=== PATIENT | male | born 1995 ===

== ENCOUNTER 2022-04-04 17:15 | Emergency (ER) | payer OTHER, SELFPAY ==
--- NOTE | ~2022-04-04 | XR_ITS ---
EXAMINATION: XR CHEST CLINICAL INFORMATION: Chest discomfort and shortness of breath COMPARISON: None TECHNIQUE: Frontal view of the chest was obtained. FINDINGS: No significant abnormality is noted involving the heart, lungs, mediastinum, bony thorax or soft tissues. XR/XR chest 1V IMPRESSION: Unremarkable examination.
[2022-04-04 18:27] VITALS: BP 131/52; PULSE 74; RESP 18; TEMP 36.6; O2SAT 98; BMI 28.4
[2022-04-04 18:46] LABS: COVID-19 Test Positive (Negative); IDNOW Serial# 16C4AD1C
[2022-04-04 18:55] LABS: Influenza A Negative (Negative); Influenza B2 Negative (Negative)
[2022-04-04] MEDS: Acetaminophen 325 MG TABLET 975 MG PO (20:34)
== END 2022-04-04 23:47 | disposition left against medical advice (07) ==
LOC: HO.ED 22:51
PROVIDERS: Emergency Provider Emergency Medicine; PCP Internal Medicine
DX: R52 Pain, unspecified (principal); R11.10 Vomiting, unspecified; Z20.822 Contact with and (suspected) exposure to COVID-19
CPT/HCPCS: 71045; 87502; 87635; 99281; 99283

== ENCOUNTER 2022-07-04 06:41 | Outpatient (REF) | payer OTHER, SELFPAY ==
[2022-07-04 11:33] LABS: MANUAL DIFF FLAG NO
[2022-07-04 11:49] LABS: Basophils Absolute Auto 0.1 X10*3/uL (0.0-0.2); Basophils Percent Auto 1.2 % (0-2); Eosinophils Absolute Auto 0.1 X10*3/uL (0.0-0.4); Eosinophils Percent Auto 1.9 % (0-4); Hematocrit 44.4 % (42.0-52.0); Hemoglobin 15.1 g/dl (14.0-18.0); Imm Gran Abs Auto 0.01 X10*3/uL (0.00-0.03); Imm Gran Pct Auto 0.2 % (0.0-0.4); Lymphocytes Absolute Auto 1.5 X10*3/uL (1.2-4.9); Lymphocytes Percent Auto 35.5 % (20-40); Mean Corpuscular Hemoglobin 30.9 pg (27.0-33.0); Mean Corpuscular Volume 90.8 fL (80.0-98.0); Mean Platelet Volume 10.1 fL (9.4-12.4); Monocytes Absolute Auto 0.3 X10*3/uL (0.1-1.2); Monocytes Percent Auto 6.8 % (2-11); Neutrophils Absolute Auto 2.3 x10*3/uL (2.0-8.3); Neutrophils Percent Auto 54.4 % (45-73); Platelet Count 275 X10*3/uL (160-400); Red Blood Count 4.89 X10*6/uL (4.60-5.80); Red Cell Distribution Width 11.8 % (11.0-16.0); White Blood Count 4.3 X10*3/uL (4.8-10.8)
[2022-07-04 12:17] LABS: Alanine Aminotransferase 31 U/L (0-40); Albumin Level 4.7 g/dL (3.5-5.0); Alkaline Phosphatase 62 U/L (39-117); Anion Gap 15 (12-20); Aspartate Amino Transferase 23 U/L (5-37); Bilirubin Total 2.7 mg/dL (0.0-1.0); Blood Urea Nitrogen 22 mg/dL (9-16); Calcium 9.5 mg/dL (8.4-10.2); Carbon Dioxide 24 mmol/L (22-29); Chloride 105 mmol/L (96-108); Cholesterol 142 mg/dL; Estimated Glomerular Filt Rate > 60; Glucose Fasting 93 mg/dL (60-99); HDL Cholesterol 45 mg/dL; LDL Cholesterol Calculated 70 mg/dl; Potassium 4.3 mmol/L (3.3-5.1); Sodium 140 mmol/L (135-145); Total Protein 7.3 g/dL (6.5-8.0); Triglycerides 138 mg/dL
[2022-07-04 12:31] LABS: TSH reflex Free T4 1.12 uIU/mL (0.32-4.0)
[2022-07-06 23:48] LABS: Follicle Stimulating Hormone 7.8 mIU/mL (1.6-8.0); Lutenizing Hormone 2.2 mIU/mL (1.5-9.3); Prolactin 14.8 ng/mL (2.0-18.0)
[2022-07-10 17:56] LABS: Testosterone, Free 84.7 pg/mL (35.0-155.0); Testosterone, Total 484 ng/dL (250-1100)
== END 2022-07-04 06:42 | disposition home or self-care (01) ==
LOC: HO.HMGCLDS 06:41
PROVIDERS: PCP Internal Medicine; Visit Provider Internal Medicine
DX: Z00.01 Encounter for general adult medical examination with abnormal findings (principal); R86.8 Other abnormal findings in specimens from male genital organs; N62 Hypertrophy of breast
CPT/HCPCS: 36415; 80053; 80061; 83001; 83002; 84146; 84402; 84403; 84443; 85025

== ENCOUNTER 2022-07-15 13:06 | Outpatient (REF) | payer OTHER, SELFPAY ==
[2022-07-15 14:40] LABS: Bilirubin Direct 0.7 mg/dL (0.0-0.5); Gamma Glutamyl Transpeptidase 24 U/L (11-51)
[2022-07-15 15:02] LABS: Ferritin 554 ng/mL (20-250)
[2022-07-16 08:44] LABS: HBsAGNum1 0.22 S/CO (0.00-0.99); HIV AB/AG Nonreactive (Nonreactive); Hepatitis B Core Antibody Nonreactive (Nonreactive); Hepatitis B Surface Antigen Negative (Negative); ~Hepatitis B Surface Antibody REACTIVE (Nonreactive); ~Hepatitis C Antibody Nonreactive (Nonreactive)
[2022-07-16 09:15] LABS: HBS Num1 233.04 mIU/mL (0-7.99); HBc Num1 0.06 S/CO (0.00-0.79); HIV Num 1 0.05 S/CO (0.00-0.99)
[2022-07-17 07:27] LABS: ~Hepatitis A Antibody IgM Nonreactive (Nonreactive)
== END 2022-07-15 13:07 | disposition home or self-care (01) ==
LOC: HO.LAB 13:06
PROVIDERS: Visit Provider Physician Assistant
DX: R17 Unspecified jaundice (principal); R10.819 Abdominal tenderness, unspecified site; R79.89 Other specified abnormal findings of blood chemistry; D64.9 Anemia, unspecified
CPT/HCPCS: 36415; 82248; 82728; 82977; 86704; 86706; 86709; 86803; 87340; 87389; 99202

== ENCOUNTER 2022-07-19 09:29 | Outpatient (REF) | payer OTHER, SELFPAY | END 2022-07-19 09:30 | disposition home or self-care (01) | LOC: HO.CT 09:29 | PROVIDERS: Visit Provider Nurse Practitioner Family | DX: Z13.89 Encounter for screening for other disorder (principal) ==

== ENCOUNTER 2023-07-19 09:29 | Emergency (ER) | payer OTHER, SELFPAY ==
[2023-07-19 09:30] VITALS: BP 138/78; PULSE 71; RESP 18; TEMP 37.6; O2SAT 100; BMI 32.3
--- NOTE | 2023-07-19 10:10 | ED.ANIMALBIT ---
HPI - Animal Bite General Chief Complaint: Animal Bite Stated Complaint: attacked by dog Time Seen by Provider: 07/19/23 10:07 Source: patient Mode of arrival: ambulatory Limitations: no limitations History of Present Illness HPI narrative: Patient is a 28-year-old male presenting the emergency department with complaint of right arm abrasion, is unsure if he was bit or scratched by dogs. 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 Reports he is unsure as the event happened so quickly. Patient states that the automobile mechanic radiator was unable to provide any information on the dog's vaccination status. Patient states he would prefer to err on the side of caution and receive all prophylactic medications. He denies any other areas of injury or trauma. He is unsure of his last tetanus vaccine. complaint: animal-related injury Onset (ago): hour(s) Animal: dog Description of animal: household pet Mechanism: other (unsure if bite/scratch) Location - Extremities: right: arm (distal right upper arm) Severity scale (1-10): 2 Context: other (delivering a package for [employer]) Associated symptoms: none Related Data Home Medications Medication Instructions Recorded Confirmed fexofenadine 60 mg tablet (Mela 60 mg PO BID 06/05/21 12/13/21 Allergy) Previous Rx's Medication Instructions Recorded amoxicillin 875 mg-potassium 1 tab PO BID #14 tabs 07/19/23 clavulanate 125 mg tablet Allergies Allergy/AdvReac Type Severity Reaction Status Date / Time latex AdvReac rash Uncoded 06/06/22 13:15 Review of Systems Review of Systems: As per HPI Yes all other systems are reviewed and are negative Constitutional: Constitutional: Reports as per HPI [facility] Past Medical History Medical History CRPS (complex regional pain syndrome), upper limb Depression Environmental and seasonal allergies Gynecomastia, male History of COVID-19 Low sperm motility Surgical History History of appendectomy Social History Social History (Updated 07/15/22 @ 12:47 by Dolores Mendez PA-C) Household Members Other:: Housing: House Alcohol intake: never Patient Tobacco Use Status: Never used Tobacco e-Cigarette/Vaping Use: Never Used Second Hand Smoke Exposure: No Advance Directives: No Advance Directives Information Provided: Yes service: No Current occupational status: employed Cognitive needs: No Hearing needs: No Vision needs: Yes Physical Exam ED Vital Signs: Vital Signs - 24 hr 07/19/23 09:30 07/19/23 10:13 Temperature 99.6 F 98.4 F Pulse Rate 71 83 Respiratory Rate 18 18 Blood Pressure 138/78 131/83 Pulse Oximetry 100 98 Oxygen Delivery Method Room Air Room Air BMI result Body Mass Index 32.3 Vital signs have been reviewed and appear to be correct. Blood pressure normal. Heart rate normal. Respiratory rate normal. Temperature normal. Oxygen saturation normal. Const General: cooperative, healthy appearing and no acute distress Orientation/consciousness: oriented to person, oriented to place, oriented to time and patient oriented x3 Limitations: no limitations HENMT Head: Yes normocephalic and Yes atraumatic Ears: external ears normal General nose exam: Normal external nose present Face and sinus: Yes face symmetric Mouth: oropharynx normal and moist mucous membranes Throat: Yes uvula midline Eyes Pupils: Equal, round and reactive pupils present Neck Neck: Yes normal visual inspection and Yes supple Resp Effort & Inspection: normal respiratory effort and able to speak in complete sentences Auscultation: clear to auscultation bilaterally Cardio Rate: regular rate Rhythm: regular rhythm Heart sounds: S1 normal heart sound present and S2 normal heart sound present GI Palpation (GI): Soft to palpation and nontender Auscultation: normoactive bowel sounds General: Yes no CVA tenderness Back/Spine/Pelvis Back: no CVA tenderness Skin General skin exam: elasticity normal and turgor normal Trauma: abrasion (4 superficial linear abrasions to distal rt upper arm w/ scant dried blood) Neuro General: oriented to person, oriented to place, oriented to time, patient oriented x3, gait normal, tone normal, moves all extremities, Normal light touch and pain sensation, no focal motor deficits, CN's II-XI intact bilaterally, normal sensation to monofilament and deep tendon reflexes 2+ bilaterally Cranial nerves: Yes Equal, round and reactive pupils present Cognition (Neuro): normal cognition Extrem General: Yes full ROM, Yes normal exam except as noted, Yes no pedal edema and Yes no calf tenderness Right upper extremity: shoulder/upper arm Details: normal ROM and abrasion upper arm distal posterior Details: multiple (4 superficial linear abrasions w/ scant dried blood) Psych Mental Status: mental status grossly normal Affect: normal affect Thought process: Normal thought process present Medical Decision Making Medical Decision Making [facility] Narrative: Patient is a 28-year-old male presenting the emergency department with complaint of right arm abrasion, is unsure if he was bit or scratched by dogs. On exam patient is awake, A+Ox3, VS WNL, afebrile, normal neurological exam without focal deficits, 4 superficial linear abrasions to posterior distal aspect of right upper arm with scant amount of dried blood, no obvious puncture wounds, no surrounding erythema or calor, no drainage or discharge, neurovascularly intact distally. Given reported symptoms and physical exam findings, initial differential includes dog bite, dog scratch, cellulitis. Will update tetanus, administer rabies vaccine and immunoglobulin, cleanse wounds, and prescribe Augmentin. Patient to receive follow up rabies vaccinations at short stay. Plan discussed with patient and patient agreeable. Return precautions discussed at bedside. Instructed patient to follow up with primary care provider to notify them of event. Differential Diagnosis Differential Diagnoses: The differential diagnosis associated with the presentation includes as per MDM. External Record Review External record reviewed: Inpatient record, Office record and Outpatient record Prescription Management I considered prescription management with: Antibiotic (Augmentin) Discharge Plan Discharge Clinical Impression: Dog bite of arm Qualifiers: Encounter type: initial encounter Laterality: right Qualified Code(s): S41.151A - Open bite of right upper arm, initial encounter Patient Disposition: Home, Self-Care Instructions: Animal Bite (ED), Rabies (ED) Additional Instructions: You were evaluated in the emergency department today for a dog bite/scratch to your right arm. Please keep the area surrounding the wound clean and dry and assess the wound daily for any signs of infection including worsening redness, swelling, thick yellow drainage, redness streaking up arm, or fever 100.4? F or greater. Follow-up with your primary care provider or return to the emergency department if any of these signs occur. You are being prescribed antibiotics to prevent infection, please take the full course of antibiotics as prescribed. Please follow-up with your primary care provider to notify them of this injury. You will receive the remaining doses of the rabies vaccine at the medical day stay, your orders have already been sent there. Please bring your vaccination record card each time. If for any reason you are unable to receive those vaccinations at the day stay, you can also return to the emergency department. Prescriptions: New amoxicillin-pot clavulanate 875-125 mg tablet 1 tab PO BID Qty: 14 0RF No Action fexofenadine [Mela Allergy] 60 mg tablet 60 mg PO BID
[2023-07-19 10:13] VITALS: BP 131/83; PULSE 83; RESP 18; TEMP 36.9; O2SAT 98
--- NOTE | 2023-07-19 10:14 | PC.NURSE ---
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 Patient with 4 abrasions to back side of right arm. No redness or bleeding noted.
[2023-07-19] MEDS: Diphth,Pertus(ACell),Tet Adult 0.5 ML SYRINGE IM (10:34)
[2023-07-19] MEDS: Rabies Vaccine, Human Diploid (Imovax) 1 ML VIAL IM (10:36)
[2023-07-19] MEDS: Rabies Immune Globulin/PF 900 UNIT/3 ML VIAL 1926 UNIT IM (10:40)
--- NOTE | 2023-07-19 10:56 | PC.NURSE ---
Medicated per mar, follow up instructions given to patient regarding follow up vaccines. Wound cleansed and covered. Patient verbalized understanding of discharge orders.
--- NOTE | 2023-07-19 11:39 | PC.NURSE ---
Domestic Animal Bite Report sent to [facility]
== END 2023-07-19 11:39 | disposition home or self-care (01) ==
PROVIDERS: Emergency Provider Student in an Organized Health Care Education/Training Program; PCP Internal Medicine
DX: S41.151A Open bite of right upper arm, initial encounter (principal); W54.0XXA Bitten by dog, initial encounter; Y93.89 Activity, other specified; Y92.480 Sidewalk as the place of occurrence of the external cause; Y99.0 Civilian activity done for income or pay; Z20.3 Contact with and (suspected) exposure to rabies
CPT/HCPCS: 90375; 90471; 90675; 90715; 96372; 99284

== ENCOUNTER 2023-07-22 13:13 | Outpatient (REF) | payer OTHER, SELFPAY | END 2023-07-22 13:14 | disposition home or self-care (01) | LOC: HO.MDS 13:13 | PROVIDERS: Visit Provider Registered Nurse Emergency | DX: Z20.3 Contact with and (suspected) exposure to rabies (principal); S51.051D Open bite, right elbow, subsequent encounter; W54.0XXD Bitten by dog, subsequent encounter | CPT/HCPCS: 90471; 90675 ==

== ENCOUNTER 2023-07-29 10:26 | Outpatient (REF) | payer OTHER, SELFPAY | END 2023-07-29 10:27 | disposition home or self-care (01) | LOC: HO.MDS 10:26 | PROVIDERS: Visit Provider Registered Nurse Emergency | DX: Z20.3 Contact with and (suspected) exposure to rabies (principal); S41.151D Open bite of right upper arm, subsequent encounter; W54.0XXD Bitten by dog, subsequent encounter | CPT/HCPCS: 90471; 90675 ==

== ENCOUNTER 2023-08-05 09:20 | Outpatient (REF) | payer OTHER, SELFPAY | END 2023-08-05 09:21 | disposition home or self-care (01) | LOC: HO.MDS 09:20 | PROVIDERS: PCP Internal Medicine; Visit Provider Registered Nurse Emergency | DX: Z20.3 Contact with and (suspected) exposure to rabies (principal); T14.8XXD Other injury of unspecified body region, subsequent encounter; W54.0XXD Bitten by dog, subsequent encounter | CPT/HCPCS: 90471; 90675 ==

== ENCOUNTER 2023-12-12 09:24 | Outpatient (REF) | payer MEDICAID, OTHER, SELFPAY ==
[2023-12-12 12:25] LABS: Alanine Aminotransferase 39 U/L (0-40); Albumin Level 4.8 g/dL (3.5-5.0); Alkaline Phosphatase 89 U/L (39-117); Anion Gap 13 (12-20); Aspartate Amino Transferase 29 U/L (5-37); Bilirubin Total 2.7 mg/dL (0.0-1.0); Blood Urea Nitrogen 18 mg/dL (9-16); Calcium 9.8 mg/dL (8.4-10.2); Carbon Dioxide 25 mmol/L (22-29); Chloride 107 mmol/L (96-108); Cholesterol 194 mg/dL (<200); Estimated Glomerular Filt Rate > 60; Glucose Fasting 93 mg/dL (60-99); HDL Cholesterol 54 mg/dL (>40); LDL Cholesterol Calculated 120 mg/dL (<100); Potassium 3.7 mmol/L (3.3-5.1); Sodium 141 mmol/L (135-145); Total Protein 7.8 g/dL (6.5-8.0); Triglycerides 102 mg/dL (<150)
== END 2023-12-12 09:25 | disposition home or self-care (01) ==
LOC: HO.HMGCLDS 09:24
PROVIDERS: PCP Internal Medicine; Visit Provider Internal Medicine
DX: Z00.01 Encounter for general adult medical examination with abnormal findings (principal); R17 Unspecified jaundice
CPT/HCPCS: 36415; 80053; 80061

== ENCOUNTER 2023-12-12 09:38 | Outpatient (AMB) | payer SELFPAY ==
[2023-12-12 10:25] VITALS: BP 136/88; PULSE 62; O2SAT 98; BMI 28.8
--- NOTE | 2023-12-12 10:25 | MHC.OFFWIV ---
Intake Vital Signs 12/12/23 10:25 Height 5 ft 8 in Weight 189 lb 2 oz BMI 28.8 BP 136/88 Blood Pressure Location Lt brachial Position Sitting Pulse 62 Pulse Source Pulse Oximeter Pulse Oximetry (%) 98 Oxygen Delivery Method Room Air Intake Visit Reasons: EP, rash in left lower arm ([phone]) Intake Note: Pt is here today for rash on lower Lt arm Patient Tobacco Use Status: Never used Tobacco Allergies latex Adverse Reaction (Uncoded 06/06/22 13:15) rash Medication List - Last Reconciled 12/12/23 by Emili Nieto, PATRICIA fexofenadine (Mela Allergy) 60 mg PO BID triamcinolone acetonide 0.1% 1 appl topical BID Do you need a note to return to daycare/school/sports/work: No HPI HPI Comments History of Present Illness Details 28 y/o male patient who presents to walk in clinic with c/o small rash on dorsal fore-arm. Reports that it started as a small area, that resembled Glue and now redness is spreading. Denies pain or itching. Denies any h/o skin infections. Reports that rash appeared 3 days ago. [facility] Medical History CRPS (complex regional pain syndrome), upper limb Depression Environmental and seasonal allergies Gynecomastia, male History of COVID-19 Low sperm motility Surgical History History of appendectomy Social History (Updated 07/15/22 @ 12:47 by Dolores Mendez PA-C) Household Members Other:: Housing: House Alcohol intake: never Patient Tobacco Use Status: Never used Tobacco e-Cigarette/Vaping Use: Never Used Second Hand Smoke Exposure: No service: No Current occupational status: employed Cognitive needs: No Hearing needs: No Vision needs: Yes Review of Systems Const All systems reviewed & are unremarkable except as noted in HPI and below Physical Exam Vital Signs: Last Vital Signs Pulse 62 12/12/23 10:25 BP 136/88 12/12/23 10:25 Pulse Ox 98 12/12/23 10:25 Oxygen Delivery Method Room Air 12/12/23 10:25 BMI result Body Mass Index 28.8 Skin General skin exam: dry skin, erythema, no jaundice, no petechiae and no purpura Lesions: lesion noted (Left dorsal forearm, crusting and red, indurated) Assessment & Plan Assessment & Plan (1) Skin rash: Code(s): R21 - Rash and other nonspecific skin eruption Plan: - Not clear what kind of lesion - Advised to monitor the area and RTC if getting worse. Medications: New triamcinolone acetonide 0.1% 1 appl topical BID 15 grams 0RF R21 - Rash and other nonspecific skin eruption Coding Level of Care Code Est Pt Level 2 (14395) Diagnoses Skin rash R21 Time Spent (min) 10
== END 2023-12-12 11:16 | disposition home or self-care (01) ==
PROVIDERS: PCP Internal Medicine; Visit Provider Nurse Practitioner Family
DX: R21 Rash and other nonspecific skin eruption (principal)
CPT/HCPCS: 99212

== ENCOUNTER 2024-01-22 08:14 | Outpatient (AMB) | payer OTHER, SELFPAY ==
[2024-01-22 08:51] VITALS: BP 118/72; PULSE 76; TEMP 36.6; O2SAT 97; BMI 28.7
--- NOTE | 2024-01-22 08:51 | MHC.OFFWIV ---
Intake Vital Signs 01/22/24 08:51 Height 5 ft 8 in Weight 189 lb BMI 28.7 BP 118/72 Blood Pressure Location Lt brachial Position Sitting Pulse 76 Pulse Source Pulse Oximeter Temp 97.9 F Temp Source Oral Pulse Oximetry (%) 97 Intake Visit Reasons: EP LT Arm rash Intake Note: pt is here for left arm rash, was seen in walk in last month and was given a cream that pt states has not gotten better and feels like rash is spreading Patient Tobacco Use Status: Never used Tobacco Allergies latex Adverse Reaction (Uncoded 01/22/24 08:52) rash Do you need a note to return to daycare/school/sports/work: No HPI EP LT Arm rash HPI Details This is a 28-year-old male patient who presents today with an ongoing rash on his left arm. He was seen at the walk-in clinic for this on 12/12 and prescribed triamcinolone 0.1% cream to apply to this. He states rash has gotten bigger, and now he he has similar, smaller areas on right lower leg. States they are sometimes itchy. also has similar areas of rash. [facility] Medical History Gynecomastia, male CRPS (complex regional pain syndrome), upper limb History of COVID-19 Low sperm motility Depression Environmental and seasonal allergies Surgical History History of appendectomy Social History Household Members Other:: Housing: House Alcohol intake: never Patient Tobacco Use Status: Never used Tobacco e-Cigarette/Vaping Use: Never Used Second Hand Smoke Exposure: No service: No Current occupational status: employed Cognitive needs: No Hearing needs: No Vision needs: Yes Review of Systems Const All systems reviewed & are unremarkable except as noted in HPI and below Physical Exam Vital Signs: Last Vital Signs Temp 97.9 F 01/22/24 08:51 Pulse 76 01/22/24 08:51 BP 118/72 01/22/24 08:51 Pulse Ox 97 01/22/24 08:51 BMI result Body Mass Index 28.7 Const General: cooperative, healthy appearing and no acute distress Resp Effort & Inspection: normal respiratory effort Skin Other: delineated, scaly, ring-shaped area on dorsal aspect right lower arm, approx 2.5cm diameter. Similar, smaller <1cm diameter areas x2 on right lower leg. Extrem General: Yes capillary refill normal and Yes no clubbing, cyanosis or edema Psych Appearance: grossly normal Mental Status: mental status grossly normal Speech and movement: Normal speech and movement present Assessment & Plan Assessment & Plan (1) Dermatophytosis of unspecified site: Code(s): B35.9 - Dermatophytosis, unspecified Plan: Rash consistent with ringworm. I have ordered clotrimazole-betamethasone cream for patient to apply to affected areas. Reviewed use and advised patient to return to the clinic if he does not improve with treatment. He agrees to plan. Medications: New clotrimazole-betamethasone 1-0.05 % Apply to rash areas twice a day as needed until rash resolves. 1 appl topical BID 15 grams 1RF B35.9 - Dermatophytosis, unspecified Coding Level of Care Code Est Pt Level 3 (05996) Diagnoses Dermatophytosis of unspecified site B35.9
== END 2024-01-22 09:24 | disposition home or self-care (01) ==
PROVIDERS: PCP Internal Medicine; Visit Provider Nurse Practitioner Family
DX: B35.9 Dermatophytosis, unspecified (principal)
CPT/HCPCS: 99213

== ENCOUNTER 2024-05-13 09:09 | Outpatient (AMB) | payer OTHER, SELFPAY ==
--- NOTE | 2024-05-13 09:41 | MHC.PC.OV ---
Vital Signs 05/13/24 09:42 Height 5 ft 8 in Weight 191 lb BMI 29.0 BP 120/86 Blood Pressure Location Rt brachial Position Sitting Pulse 68 Pulse Source Pulse Oximeter Pulse Oximetry (%) 98 Oxygen Delivery Method Room Air Intake Visit Reasons: Annual PE Allergies latex Adverse Reaction (Uncoded 05/13/24 10:01) rash Medication List - Last Reconciled 05/13/24 by Gissell Monte MD No Known Home Meds Tobacco use date assessed: 05/13/24 Dental Screening Dental Screen Date: 05/13/24 Did you have a dental visit in the last 12 months?: No Did you have a dental problem in the last 6 months where you did not have access to dental care?: No Was dental information given to patient?: No HPI Annual PE HPI Details 29-year-old male, here today for physical exam. Complains of loss of libido, has been told that he has low sperm motility, would like a referral to urology. Patient also has been having intermittent episodes of painful urination. Denies any penile discharge, no rash or lesions in genital areas. He is also having intermittent episodes of nasal congestion runny nose ordered last several months. Not taking any medication for this [facility] Medical History (Updated 08/24/24 @ 02:13 by Gissell Monte MD) Loss of libido Fluctuation of weight Gynecomastia, male CRPS (complex regional pain syndrome), upper limb History of COVID-19 Low sperm motility Depression Environmental and seasonal allergies Surgical History History of appendectomy Social History Household Members Other:: Housing: House Alcohol intake: never Patient Tobacco Use Status: Never used Tobacco e-Cigarette/Vaping Use: Never Used Second Hand Smoke Exposure: No service: No Current occupational status: employed Cognitive needs: No Hearing needs: No Vision needs: Yes Questionnaire PHQ-9 Over the last 2 weeks, how often have you been bothered by any of the following problems? 59149 - PHQ-9 Billing: Patient declined-do not bill Source: Developed by Drs. Isidoro Leigh, Yajaira Harley, Yair Villagran and colleagues, with an educational mariya from [employer]. Thrive Questionnaire Date Thrive assessed: 05/13/24 What is your living situation today?: I choose not to answer this question Within the past 12 months, did the food you bought not last and you didn't have the money to get more?: I choose not to answer this question Within the past 12 months, did you worry whether your food would run out before you got money to buy more?: I choose not to answer this question Do you have trouble paying for medicines?: I choose not to answer this question Do you have trouble getting transportation to medical appointments?: I choose not to answer this question Do you have trouble paying your heating and electricity bill?: I choose not to answer this question Do you have trouble taking care of your child, family member or friend?: I choose not to answer this question Do you have trouble with day-to-day activities such as bathing, preparing meals, shopping, managing finances, etc.?: I choose not to answer this question Are you currently unemployed and looking for a job?: I choose not to answer this question Are you interested in more education?: I choose not to answer this question Currently or been in a relationship where the following occur: I choose not to answer this question THRIVE Score: 0 MONICA-7 AMB Questionnaire MONICA-7 Date MONICA - 7 assessed: 05/13/24 Source: Developed by Drs. Isidoro Leigh, Yajaira Harley, Yair Villagran and colleagues, with an educational mariya from [employer]. MONICA-7 Assessment Billing MONICA-7 Assessment Tool: pt declined-do not bill Review of Systems Const Denies body aches, Reports fatigue, Denies fever(s), Denies headache(s) and Denies weakness Eyes Denies change in vision, Denies eye discharge and Denies itchy eyes ENT Denies dizziness, Denies headache(s), Denies nasal congestion, Denies nasal discharge and Denies sore throat Card Denies chest pain, Denies lightheadedness, Denies palpitations and Denies dyspnea Resp Denies chest congestion, Denies cough, Denies dyspnea and Denies wheezing GI Denies abdominal pain, Denies change in bowel habits and Denies heartburn Reports as per HPI, Denies hematuria, Denies difficulty urinating, Denies urinary frequency and Denies urinary urgency Musc Reports no additional complaints Skin/Breast Denies breast pain, Denies breast mass, Denies lesions and Denies rash Neuro Denies dizziness, Denies headache(s) and Denies weakness Psych Reports no additional complaints Endo Reports fatigue, Denies polydipsia, Denies polyuria and Denies palpitations Larry/Lymph Denies easy bruising Aller/Immun Denies itchy eyes, Denies seasonal rhinorrhea and Denies wheezing Physical exam (Primary Care) Vital Signs: Last Vital Signs Pulse 68 05/13/24 09:42 BP 120/86 05/13/24 09:42 Pulse Ox 98 05/13/24 09:42 Oxygen Delivery Method Room Air 05/13/24 09:42 BMI result Body Mass Index 29.0 Tobacco/Smoking Status: Tobacco use Status Tobacco use date assessed 05/13/24 05/13/24 09:44 Patient Tobacco Use Status Never used Tobacco 05/13/24 09:41 e-Cigarette/Vaping Use Never Used 05/13/24 09:41 Thrive Assessment: Date of Thrive Assessment Date Thrive assessed 05/13/24 05/13/24 09:46 Currently or been in a relationship where the following occur: I choose not to answer this question Const General: cooperative, comfortable and no acute distress Orientation/consciousness: patient oriented x3 Limitations: no limitations HENMT Ears: hearing grossly normal bilaterally, external ears normal, TM's normal bilaterally and EAC's normal General nose exam: Normal external nose present, Normal nasal mucous membranes and turbinates present and No nasal discharge present Mouth: Normal oral and palatal mucosa present, oropharynx normal and moist mucous membranes Throat: Yes posterior oropharynx normal Eyes General: appearance normal, both eyes and all related structures Conjunctivae: conjunctivae normal Pupils: Equal, round and reactive pupils present EOM: EOMs intact bilaterally Neck Neck: Yes full ROM, Yes no lymphadenopathy and Yes supple Chest Breast/axilla palpation: normal palpation of the breasts and no axillary lymphadenopathy Resp Effort & Inspection: normal respiratory effort and able to speak in complete sentences Auscultation: clear to auscultation bilaterally Cardio Rate: regular rate Rhythm: regular rhythm Heart sounds: S1 normal heart sound present and S2 normal heart sound present GI Inspection: Yes normal to inspection Palpation (GI): Soft to palpation, nontender and no masses Auscultation: normal bowel sounds Male General Exam: Yes normal external exam, No hernia, No inguinal lymphadenopathy and No Genital lesions present Penis: normal penis, uncircumcised and No Genital lesions present Scrotum: scrotum normal and testes descended bilaterally Testes: Testes normal and no testicular tenderness Back/Spine/Pelvis Cervical Spine: cervical ROM normal Thoracic/Lumbar Spine: thoracic and lumbar spine normal to inspection Skin Other: Some hypopigmentation noted on lateral aspect of right hand and wrist General skin exam: no rashes or lesions noted Neuro General: patient oriented x3, gait normal, tone normal, moves all extremities, Normal light touch and pain sensation and no focal motor deficits Cranial nerves: Yes Equal, round and reactive pupils present Cognition (Neuro): normal cognition Gait exam (Neuro): Normal gait present Motor exam (neuro): 5/5 motor strength present throughout Extrem General: Yes full ROM, Yes no joint enlargement, Yes no pedal edema, Yes no calf tenderness and Yes normal gait Psych Appearance: grossly normal and well kempt Mental Status: mental status grossly normal Speech and movement: Normal speech and movement present Affect: normal affect Attitude: cooperative Thought process: Normal thought process present Thought content: Normal thought content present Assessment and Plan Assessment & Plan (1) Annual visit for general adult medical examination with abnormal findings: Code(s): Z00.01 - Encounter for general adult medical examination with abnormal findings Plan: Will check appropriate labs. Recommended dental visit every 6 months and regular eye exams, at least every 2 years. Take adequate calcium in diet and vitamin-D 3 at 2000 IU per cap once a day, in addition to weight-bearing exercises to help maintain good muscle tone and weight control. Instructed to do self testicular exam check for any mass. Reminded to get his yearly flu shot and COVID booster (2) Environmental and seasonal allergies: Code(s): J30.89 - Other allergic rhinitis Plan: Advised to try taking [id number] Claritin 10 mg once a day or Zyrtec. (3) Low sperm motility: Code(s): R86.8 - Other abnormal findings in specimens from male genital organs Plan: Urology consult ordered (4) CRPS (complex regional pain syndrome), upper limb: Comment: Workman's comp injury in 2019 currently being followed at the [facility] and Dr. Juan Carlos doty Code(s): G90.519 - Complex regional pain syndrome I of unspecified upper limb Plan: Workman's comp issue, followed at [facility] in [place] (5) Elevated bilirubin: Code(s): R17 - Unspecified jaundice Plan: May be Barton most common cause of hyperbilirubinemia in the setting of normal liver enzymes -however will rule out other causes (6) Dysuria: Code(s): R30.0 - Dysuria Plan: Urinalysis with reflex culture and sensitivity ordered (7) Loss of libido: Code(s): R68.82 - Decreased libido Plan: Ordered free and total testosterone level, CBC, TSH with free T4 and comprehensive metabolic panel as well as vitamin-D level Orders: Orders Complete Blood Count Auto Diff 05/13/24 R17 - Unspecified jaundice, G90.519 - Complex regional pain syndrome I of unspecified upper limb, R86.8 - Other abnormal findings in specimens from male genital organs, J30.89 - Other allergic rhinitis, R68.89 - Other general symptoms and signs, Z00.01 - Encounter for general adult medical examination with abnormal findings Lipid Panel 05/13/24 R17 - Unspecified jaundice, G90.519 - Complex regional pain syndrome I of unspecified upper limb, R86.8 - Other abnormal findings in specimens from male genital organs, J30.89 - Other allergic rhinitis, R68.89 - Other general symptoms and signs, Z00.01 - Encounter for general adult medical examination with abnormal findings TSH reflex Free T4 05/13/24 R17 - Unspecified jaundice, G90.519 - Complex regional pain syndrome I of unspecified upper limb, R86.8 - Other abnormal findings in specimens from male genital organs, J30.89 - Other allergic rhinitis, R68.89 - Other general symptoms and signs, Z00.01 - Encounter for general adult medical examination with abnormal findings Comprehensive Acton. Panel Fast 05/13/24 R17 - Unspecified jaundice, G90.519 - Complex regional pain syndrome I of unspecified upper limb, R86.8 - Other abnormal findings in specimens from male genital organs, J30.89 - Other allergic rhinitis, R68.89 - Other general symptoms and signs, Z00.01 - Encounter for general adult medical examination with abnormal findings IRON PROFILE 05/13/24 R17 - Unspecified jaundice, G90.519 - Complex regional pain syndrome I of unspecified upper limb, R86.8 - Other abnormal findings in specimens from male genital organs, J30.89 - Other allergic rhinitis, R68.89 - Other general symptoms and signs, Z00.01 - Encounter for general adult medical examination with abnormal findings Vitamin D 25-OH Total 05/13/24 R17 - Unspecified jaundice, G90.519 - Complex regional pain syndrome I of unspecified upper limb, R86.8 - Other abnormal findings in specimens from male genital organs, J30.89 - Other allergic rhinitis, R68.89 - Other general symptoms and signs, Z00.01 - Encounter for general adult medical examination with abnormal findings Testosterone, Free/Total 05/13/24 R17 - Unspecified jaundice, G90.519 - Complex regional pain syndrome I of unspecified upper limb, R86.8 - Other abnormal findings in specimens from male genital organs, J30.89 - Other allergic rhinitis, R68.89 - Other general symptoms and signs, Z00.01 - Encounter for general adult medical examination with abnormal findings UA CC w/rflx Micro + Cult 05/13/24 R30.0 - Dysuria Referrals Urology Referral R68.82 - Decreased libido, R86.8 - Other abnormal findings in specimens from male genital organs Coding Level of Care Code Est Pt Prev Care 18-39y(37525) Diagnoses Annual visit for general adult medical examination with abnormal findings Z00.01 Environmental and seasonal allergies J30.89 Low sperm motility R86.8 CRPS (complex regional pain syndrome), upper limb G90.519 Elevated bilirubin R17 Dysuria R30.0 Loss of libido R68.82
[2024-05-13 09:42] VITALS: BP 120/86; PULSE 68; O2SAT 98; BMI 29.0
== END 2024-05-13 10:27 | disposition home or self-care (01) ==
PROVIDERS: PCP Internal Medicine; Visit Provider Internal Medicine
DX: Z00.01 Encounter for general adult medical examination with abnormal findings (principal); J30.89 Other allergic rhinitis; R86.8 Other abnormal findings in specimens from male genital organs; G90.519 Complex regional pain syndrome I of unspecified upper limb; R17 Unspecified jaundice; R30.0 Dysuria; R68.82 Decreased libido
CPT/HCPCS: 99499

== ENCOUNTER 2024-06-07 08:43 | Outpatient (REF) | payer MEDICAID, OTHER, SELFPAY ==
[2024-06-07 10:06] LABS: MANUAL DIFF FLAG NO
[2024-06-07 10:17] LABS: Basophils Percent Auto 0.8 % (0-2); Eosinophils Absolute Auto 0.1 X10*3/uL (0.0-0.4); Eosinophils Percent Auto 1.7 % (0-4); Hematocrit 43.2 % (42.0-52.0); Hemoglobin 15.2 g/dl (14.0-18.0); Imm Gran Abs Auto 0.01 X10*3/uL (0.00-0.03); Imm Gran Pct Auto 0.3 % (0.0-0.4); Lymphocytes Absolute Auto 1.3 X10*3/uL (1.2-4.9); Lymphocytes Percent Auto 36.6 % (20-40); Mean Corpuscular HGB Conc 35.2 g/dl (31.0-36.0); Mean Corpuscular Hemoglobin 31.2 pg (27.0-33.0); Mean Corpuscular Volume 88.7 fL (80.0-98.0); Mean Platelet Volume 9.5 fL (9.4-12.4); Monocytes Absolute Auto 0.2 X10*3/uL (0.1-1.2); Monocytes Percent Auto 5.5 % (2-11); Neutrophils Percent Auto 55.1 % (45-73); Platelet Count 286 X10*3/uL (160-400); Red Blood Count 4.87 X10*6/uL (4.60-5.80); Red Cell Distribution Width 11.8 % (11.0-16.0); White Blood Count 3.6 X10*3/uL (4.8-10.8)
[2024-06-07 10:42] LABS: Alanine Aminotransferase 23 U/L (0-40); Albumin Level 4.5 g/dL (3.5-5.0); Alkaline Phosphatase 64 U/L (39-117); Anion Gap 12 (12-20); Aspartate Amino Transferase 22 U/L (5-37); Bilirubin Total 1.2 mg/dL (0.0-1.0); Blood Urea Nitrogen 29 mg/dL (9-16); Carbon Dioxide 21 mmol/L (22-29); Chloride 111 mmol/L (96-108); Cholesterol 163 mg/dL (<200); Estimated Glomerular Filt Rate > 60; Glucose Fasting 108 mg/dL (60-99); HDL Cholesterol 53 mg/dL (>40); Iron 109 mcg/dL (45-160); LDL Cholesterol Calculated 102 mg/dL (<100); Percent Iron Saturation 34 % (15-50); Potassium 4.1 mmol/L (3.3-5.1); Sodium 140 mmol/L (135-145); Total Iron Binding Capacity 320 mcg/dL (228-428); Total Protein 7.2 g/dL (6.5-8.0); Triglycerides 42 mg/dL (<150); Unsaturated Iron Binding 211 ug/dL
[2024-06-07 10:59] LABS: TSH reflex Free T4 0.76 uIU/mL (0.32-4.0); Vitamin D 25-OH Total 22.9 ng/mL (>30)
[2024-06-12 11:33] LABS: Testosterone, Free 73.3 pg/mL (35.0-155.0); Testosterone, Total 382 ng/dL (250-1100)
== END 2024-06-07 08:44 | disposition home or self-care (01) ==
LOC: HO.HMGCLDS 08:43
PROVIDERS: PCP Internal Medicine; Visit Provider Internal Medicine
DX: Z00.01 Encounter for general adult medical examination with abnormal findings (principal); R17 Unspecified jaundice; G90.519 Complex regional pain syndrome I of unspecified upper limb; R86.8 Other abnormal findings in specimens from male genital organs; J30.89 Other allergic rhinitis; R68.89 Other general symptoms and signs; R30.0 Dysuria
CPT/HCPCS: 36415; 80053; 80061; 82306; 83540; 84402; 84403; 84443; 85025

== ENCOUNTER 2024-08-30 08:50 | Outpatient (AMB) | payer OTHER, SELFPAY ==
--- NOTE | 2024-08-30 09:06 | A.OFFVIS_ITS ---
Intake Visit Reasons: decreased libido/infertility? Intake Note: New Patient presents for initial visit for decreased libido and inferitility Urology Medications: none Blood Thinner: none Automotive Specialty Technician Required: No Accompanied by: partner Allergies latex Adverse Reaction (Uncoded 08/30/24 09:35) rash Medication List - Last Reconciled 08/30/24 by SAGRARIO Meléndez No Known Home Meds HPI Comments Details: Rimma is a pleasant 29-year-old male patient of who was accompanied by his significant other at today's office visit. He has a past medical history of low libido, gynecomastia, complex regional pain syndrome, depression, environmental allergies, and low sperm motility. He presents to the office today as a new patient for low libido and infertility workup. In discussion with the patient today he reports over the last 8 years he has been trying to conceive with his . He reports a previous workup in [place] over 5 years ago however never fully underwent medical treatment. He reports having had semen analysis that noted decreased mobility in sperm. He reports his has had fertility workup all that was within normal limits. He reports he continues to attempt to conceive however feels he now suffers from low libido. He reports having followed up with his PCP at which time labs were drawn and recommendations were made for urology referral for further assessment evaluation. These labs reviewed with the patient today. Testosterone: 06/16 382 Free testosterone: 06/16 73.3 We discussed at length potential causes of low libido as well as potential for infertility. Discussed further workup as well as lifestyle modifications to assist with these issues. He otherwise denies any bothersome urinary issues or concerns. He denies urinary urgency, urinary frequency, incontinence, nocturia, hematuria, dysuria, foul smelling urine, changes to urinary stream, flank pain, fever, and or chills. He is happy with his current voiding parameters. In office urinalysis results reviewed with the patient today. When asked he denies any previous trauma and or known sicknesses. He otherwise offers no other issues or concerns at this time. [facility] Medical History Loss of libido Fluctuation of weight Gynecomastia, male CRPS (complex regional pain syndrome), upper limb History of COVID-19 Low sperm motility Depression Environmental and seasonal allergies Surgical History History of appendectomy Social History Household Members Other:: Housing: House Alcohol intake: never Patient Tobacco Use Status: Never used Tobacco e-Cigarette/Vaping Use: Never Used Second Hand Smoke Exposure: No service: No Current occupational status: employed Cognitive needs: No Hearing needs: No Vision needs: Yes Review of Systems Const All systems reviewed & are unremarkable except as noted in HPI and below Physical Exam Const General: cooperative, healthy appearing, comfortable, no acute distress, well developed, alert and awake Orientation/consciousness: patient oriented x3 Limitations: no limitations HEENT Head: Yes normal to inspection, Yes normocephalic and Yes atraumatic Ears: hearing grossly normal bilaterally Eyes General: appearance normal, both eyes and all related structures Neck Neck: Yes normal visual inspection and Yes trachea midline Chest Chest palpation & inspection: normal inspection of the chest Resp Effort & Inspection: normal respiratory effort and able to speak in complete sentences Cardio Rate: regular rate GI Inspection: Yes normal to inspection General: Yes no CVA tenderness Back/Spine/Pelvis Back: no CVA tenderness Skin General skin exam: no rashes or lesions noted Neuro General: patient oriented x3 Extrem General: Yes normal to inspection Psych Appearance: grossly normal and well kempt Mental Status: mental status grossly normal Speech and movement: Normal speech and movement present and Clear speech present Affect: normal affect Attitude: cooperative Thought process: Normal thought process present Thought content: Normal thought content present Insight: Fair insight present (Psych) Judgement: Fair judgement present (Psych) Results AMB Urinalysis, Automated UA Leukoctes 0 Alvin/uL Last Edit by Yasmine Thompson on 08/30/24 09:15 UA Nitrite Negative Last Edit by Yasmine Thompson on 08/30/24 09:15 UA Urobilinogen 0.2 mg/dL Last Edit by Frederickbrentsidra De La Vegaclaudine on 08/30/24 09:15 UA Protein 0 mg/dL Last Edit by Yasmine Thompson on 08/30/24 09:15 UA pH 6.0 Last Edit by Yasmine Thompson on 08/30/24 09:15 UA Blood 0 Shamar/uL Last Edit by Yasmine Thompson on 08/30/24 09:15 UA Specific [place] 1.020 Last Edit by Yasmine Yoletteclaudine on 08/30/24 09:15 UA Ketone Negative Last Edit by Yasmine Yoletteclaudine on 08/30/24 09:15 UA Bilirubin 0 mg/dL Last Edit by Yasmine Thompson on 08/30/24 09:15 UA Glucose 0 mg/dL Last Edit by Yasmine Thompson on 08/30/24 09:15 Results Reviewed Results Reviewed: Laboratory Last Values Urine pH (Auto) 6.0 08/30/24 09:14 Specific [place] (Auto) 1.020 08/30/24 09:14 Urine Protein (Auto) 0 mg/dL 08/30/24 09:14 Glucose (UA)(Auto) 0 mg/dL 08/30/24 09:14 Urine Ketones (Auto) Negative 08/30/24 09:14 Urine Blood (Auto) 0 Shamar/uL 08/30/24 09:14 Urine Nitrite (Auto) Negative 08/30/24 09:14 Urine Bilirubin (Auto) 0 mg/dL 08/30/24 09:14 Urine Urobilinogen (Auto) 0.2 mg/dL 08/30/24 09:14 Leukocyte Esterase (Auto) 0 Alvin/uL 08/30/24 09:14 Assessment & Plan Assessment & Plan (1) Loss of libido: Code(s): R68.82 - Decreased libido Category: Medical (2) Low sperm motility: Code(s): R86.8 - Other abnormal findings in specimens from male genital organs Category: Medical Plan In office urinalysis results reviewed with the patient today; as noted above. Recent testosterone results reviewed with the patient today; as noted above. Start Cialis 5 mg daily as discussed and prescribed. We discussed at length potential causes of low libido as well as potential for infertility. Discussed lifestyle modifications to assist with low libido. Discussed obtaining LH, FSH, estradiol, testosterone free and total, prolactin, and SHBG for further assessment evaluation. Discussed semen analysis in office verses fellows kit Follow-up in 3 months with labs and semen sample prior to office visit or sooner with any issues, concerns, and or questions. Orders: Orders Testosterone, Free/Total Today R68.82 - Decreased libido Lutenizing Hormone Today R68.82 - Decreased libido Estradiol Ultra Sensitive Today E29.1 - Testicular hypofunction, R68.82 - Decreased libido AMB Urinalysis Automated Today Z13.9 - Encounter for screening, unspecified Sex Hormone Binding Globulin Today R68.82 - Decreased libido Prolactin Today R68.82 - Decreased libido Prostate Specific Antigen Today R68.82 - Decreased libido Follicle Stimulating Hormone Today R68.82 - Decreased libido Medications: New tadalafil (Cialis) [facility] [address] [id number] 5 mg PO DAILY 90 days 90 tabs 0RF R68.82 - Decreased libido Patient Instructions: The patient had an opportunity to ask questions regarding the treatment plan. All questions were answered. Physical exam, labs, and imaging were discussed and reviewed in detail. As well as risks, benefits, and discussion of treatment choices. No major barriers to understanding were identified. The patient expressed understanding and agreement with the above treatment plan. The patient was made aware they should contact our office by phone for worsening of their current condition, the appearance of new symptoms, or with any questions or concerns. Compliance is encouraged with any medications and follow up testing that is ordered. It is a privilege to be allowed the opportunity to participate in? your urological care.? Again, if you have any questions or concerns If you have any questions or concerns please do not hesitate to contact me. The office is [phone]. This note is constructed using voice recognition software. While every effort has been made to ensure accuracy groundskeeping maintenance worker errors may have been included. Yours sincerely, SAGRARIO Meléndez Coding Level of Care Code New Pt Level 4 (95592) Diagnoses Loss of libido R68.82 Low sperm motility R86.8
== END 2024-08-30 09:33 | disposition home or self-care (01) ==
PROVIDERS: PCP Internal Medicine; Visit Provider Nurse Practitioner Family
DX: R68.82 Decreased libido (principal); R86.8 Other abnormal findings in specimens from male genital organs; Z13.9 Encounter for screening, unspecified
CPT/HCPCS: 99204

== ENCOUNTER → 2024-08-30 08:50 | Outpatient (BNVA) | payer MEDICAID, OTHER, SELFPAY | PROVIDERS: PCP Internal Medicine; Visit Provider Nurse Practitioner Family | DX: R68.82 Decreased libido (principal); N46.9 Male infertility, unspecified; R86.8 Other abnormal findings in specimens from male genital organs | CPT/HCPCS: 81003 ==

== ENCOUNTER 2024-11-01 14:16 | Emergency (ER) | payer OTHER, SELFPAY ==
--- NOTE | ~2024-11-01 | XR_ITS ---
EXAMINATION: XR CHEST CLINICAL INFORMATION: chest pain COMPARISON: None available. TECHNIQUE: Frontal view of the chest was obtained. FINDINGS: Cardiac, hilar, and mediastinal contours are normal. Mildly elevated right hemidiaphragm. Lungs are clear bilaterally. No pneumothorax or effusion. No focal osseous or soft tissue abnormalities. XR/XR chest 1V IMPRESSION: No active disease. Electronically signed by: Bret Nina MD 11/01/2024 04:57 PM EST
--- NOTE | 2024-11-01 14:17 | ECG_ITS ---
Test Reason : CHEST PAIN Blood Pressure : / mmHG Vent. Rate : 075 BPM Atrial Rate : 075 BPM P-R Int : 152 ms QRS Dur : 078 ms QT Int : 374 ms P-R-T Axes : 039 061 026 degrees QTc Int : 417 ms Normal sinus rhythm Normal ECG No previous ECGs available Referred By: Generic ED Physician Electronically Signed By:BOO GUZMAN MD
[2024-11-01 14:55] VITALS: BP 123/78; PULSE 86; RESP 20; TEMP 37.1; O2SAT 98; BMI 34.6
--- NOTE | 2024-11-01 15:00 | ED_ITS ---
HPI - General Adult General Chief complaint: Chest Pain Stated complaint: Chest pain when breathing Time Seen by Provider: 11/01/24 20:55 History of Present Illness ED Provider: Doreen CERNA narrative: The patient is a 29-year-old male with no significant past medical history and who was on no medications who comes to the emergency room for evaluation of left-sided chest pain that he has had for about a week. He feels the pain mostly in the left anterior chest but he can also feel it in the back of the left chest. He notices it when he takes a deep breath or certain positions when he lies down. Pain began a few days after he did some lifting of some heavy water bottles. He has had a fever, sweats, chills. No pain or swelling in his legs. No cough or sputum. The patient has no history of blood clots. His parents are both alive in their 60s and they are in good health. He is unaware of any family history that might relate to his complaint today. Related Data Previous Rx's ?Medication ?Instructions ?Recorded tadalafil 5 mg tablet (Cialis) 5 mg PO DAILY 90 days #90 tabs 08/30/24 Allergies Allergy/AdvReac Type Severity Reaction Status Date / Time latex AdvReac rash Uncoded 11/01/24 14:57 Review of Systems 2 Review of Systems: Yes all other systems are reviewed and are negative [facility] Past Medical History Medical History Loss of libido Fluctuation of weight Gynecomastia, male CRPS (complex regional pain syndrome), upper limb History of COVID-19 Low sperm motility Depression Environmental and seasonal allergies Surgical History History of appendectomy Social History Social History Household Members Other:: Housing: House Alcohol intake: never Patient Tobacco Use Status: Never used Tobacco e-Cigarette/Vaping Use: Never Used Second Hand Smoke Exposure: No Advance Directives: No Advance Directives Information Provided: No Do you have a plan to hurt others: No Plan service: No Current occupational status: employed Cognitive needs: No Hearing needs: No Vision needs: Yes Physical Exam ED Vital Signs: Vital Signs - 24 hr 11/01/24 14:55 11/01/24 20:18 11/01/24 22:01 Temperature 98.8 F 98.4 F 98.4 F Pulse Rate 86 69 69 Respiratory Rate 20 16 16 Blood Pressure 123/78 161/74 H 161/74 H Pulse Oximetry 98 99 99 Oxygen Delivery Method Room Air Room Air BMI result Body Mass Index 34.6 Const Other: The patient is awake, alert, pleasant, cooperative. He is in no distress. He looks well. HENMT Other: The face is symmetrical. ?Mucous membranes moist. Eyes Other: Pupils are round equal, conjunctivae are clear, extraocular movements intact Neck Neck: Yes full ROM and Yes no JVD Chest Other: No reproducible chest wall tenderness Resp Effort & Inspection: normal respiratory effort Auscultation: clear to auscultation bilaterally Cardio Rate: regular rate Rhythm: regular rhythm Heart sounds: S1 normal heart sound present and S2 normal heart sound present GI Other: Abdomen is soft and nontender Skin Other: Skin is dry and unremarkable Neuro Other: The patient is awake and alert with a normal mental status and grossly neurologically intact Extrem Other: No calf swelling or tenderness, no asymmetry no edema Course Course Course Narrative: RME; 29 year male presents to ED for left-sided chest pain with pleurisy for 1 week. Patient states chest pain on inspiration for 1 week. Patient states also chest pain when he move his left upper extremity or move his torso. Patient denies any recent trauma or flank pain. Patient denies any URI symptoms. Lungs are clear. Negative for any pitting edema or calf pain. EKG labs chest x-ray ordered. Medications Administered Discontinued Medications Generic Name Dose Route Start Last Admin Trade Name Kenroy PRN Reason Stop Dose Admin Ibuprofen 600 mg 11/01/24 21:55 11/01/24 21:58 Ibuprofen 600 Mg Tablet PO 11/01/24 21:56 600 mg ONCE ONE Administration Medical Decision Making Medical Decision Making [facility] Narrative: The patient is a 29-year-old without significant past medical history who presents with left-sided chest pain that seems very much to be chest wall pain. He is PERC negative. Chest x-ray is negative. EKGs unremarkable. Other labs are unremarkable. The pain is pleuritic but it is also very positional. It is not reproducible but I still think this is chest wall pain. He will be reassured and discharged to follow up with his regular doctor. He had some minor LFT abnormalities on his screening tests. He was advised to follow up with his regular doctor about these tests as well. Lab Data 11/01/24 15:15 11/01/24 15:15 Labs: Lab Results 11/01/24 Range/Units 15:15 WBC 5.4 (4.8-10.8) X10*3/uL RBC 4.76 (4.60-5.80) X10*6/uL Hgb 14.6 (14.0-18.0) g/dl Hct 41.8 L (42.0-52.0) % MCV 87.8 (80.0-98.0) fL MCH 30.7 (27.0-33.0) pg MCHC 34.9 (31.0-36.0) g/dl RDW 11.9 (11.0-16.0) % Plt Count 288 (160-400) X10*3/uL MPV 9.0 L (9.4-12.4) fL Immature Gran % (Auto) 0.2 (0.0-0.4) % Neut % (Auto) 65.6 (45-73) % Lymph % (Auto) 25.4 (20-40) % [place] % (Auto) 6.8 (2-11) % Eos % (Auto) 1.3 (0-4) % Baso % (Auto) 0.7 (0-2) % Lymph # (Auto) 1.4 (1.2-4.9) X10*3/uL [place] # (Auto) 0.4 (0.1-1.2) X10*3/uL Eos # (Auto) 0.1 (0.0-0.4) X10*3/uL Baso # (Auto) 0.0 (0.0-0.2) X10*3/uL Abs Immat Gran (auto) 0.01 (0.00-0.03) X10*3/uL Absolute Neuts (auto) 3.6 (2.0-8.3) x10*3/uL Absolute Nucleated RBC 0.000 (0.0-0.012) X10*3/uL Nucleated RBC % (auto) 0.0 (0.0-0.2) /100WBC PT 11.0 (10.9-12.4) SEC INR 0.9 (0.9-1.1) APTT 35.4 (26.0-36.8) SEC D-Dimer High Sensitivty < 150 NG/ML Sodium 140 (135-145) mmol/L Potassium 3.9 (3.3-5.1) mmol/L Chloride 106 (96-108) mmol/L Carbon Dioxide 24 (22-29) mmol/L Anion Gap 14 (12-20) BUN 20 H (9-16) mg/dL Creatinine 1.18 (0.5-1.4) mg/dL Estim Creat Clear Calc 105.5 Estimated GFR > 60 Random Glucose 87 (60-115) mg/dL Calcium 9.9 D (8.4-10.2) mg/dL Total Bilirubin 2.0 H (0.0-1.0) mg/dL AST 60 H (5-37) U/L ALT 114 H (0-40) U/L Alkaline Phosphatase 74 (39-117) U/L Troponin I High Sens < 2.7 (<3.5-35.0) ng/L B-Natriuretic Peptide < 10 (<100) pg/mL Total Protein 7.7 (6.5-8.0) g/dL Albumin 4.8 (3.5-5.0) g/dL Influenza Type A (PCR) NEGATIVE (Negative) Influenza Type B (PCR) NEGATIVE (Negative) RSV RNA Qual (PCR) NEGATIVE (Negative) SARS-CoV-2 RNA (RT-PCR) NEGATIVE (Negative) Independent Interpretation I performed an independent interpretation of an: EKG Interpretation: EKG 14:15 shows normal sinus rhythm at 75 beats per minute. It is a normal EKG Discharge Plan Discharge Clinical Impression: Left-sided chest wall pain, Abnormal liver function tests Patient Disposition: Home, Self-Care Instructions: Chest Wall Pain (ED) Additional Instructions: Your testing in the emergency room today is very reassuring. There is no evidence of any dangerous process. I believe that the pain you have been experiencing is a muscle pain deep in the chest wall on your left side. I think it is perfectly safe for you to exercise. Exercise may be helpful. I would you would encourage you to exercise and convinced yourself that there is no problem with exercising. You may use ibuprofen if you wish for the pain but it is not necessary. I expect this pain should go away on its own in the next couple of weeks. Your blood testing shows some minor abnormalities related to your liver. I am not certain what this might imply and it may mean nothing at all. Please contact your regular doctor for a follow up appointment to discuss this in the next few weeks. If at any point you feel significantly worse, especially if you are short of breath or if you develop a fever, return to the emergency room. Prescriptions: No Action tadalafil [Cialis] 5 mg tablet 5 mg PO DAILY 90 Days Qty: 90 0RF Rx Instructions: [facility] [id number] Referrals: Gissell Monte MD [Primary Care Provider] - (Chest wall pain) Interventions: ED Discharge Assessment Last Done: 11/01/24 22:01 Discharge Date/Time: 11/01/24 22:02 Print Language: Indonesian
[2024-11-01 15:20] LABS: MANUAL DIFF FLAG NO
[2024-11-01 15:27] LABS: Basophils Percent Auto 0.7 % (0-2); Eosinophils Absolute Auto 0.1 X10*3/uL (0.0-0.4); Eosinophils Percent Auto 1.3 % (0-4); Hematocrit 41.8 % (42.0-52.0); Hemoglobin 14.6 g/dl (14.0-18.0); INTERNATIONAL NORM RATIO 0.9 (0.9-1.1); Imm Gran Abs Auto 0.01 X10*3/uL (0.00-0.03); Imm Gran Pct Auto 0.2 % (0.0-0.4); Lymphocytes Absolute Auto 1.4 X10*3/uL (1.2-4.9); Lymphocytes Percent Auto 25.4 % (20-40); Mean Corpuscular HGB Conc 34.9 g/dl (31.0-36.0); Mean Corpuscular Hemoglobin 30.7 pg (27.0-33.0); Mean Corpuscular Volume 87.8 fL (80.0-98.0); Monocytes Absolute Auto 0.4 X10*3/uL (0.1-1.2); Monocytes Percent Auto 6.8 % (2-11); Neutrophils Absolute Auto 3.6 x10*3/uL (2.0-8.3); Neutrophils Percent Auto 65.6 % (45-73); Platelet Count 288 X10*3/uL (160-400); Red Blood Count 4.76 X10*6/uL (4.60-5.80); Red Cell Distribution Width 11.9 % (11.0-16.0); White Blood Count 5.4 X10*3/uL (4.8-10.8)
[2024-11-01 15:30] LABS: Partial Thromboplastin Time 35.4 SEC (26.0-36.8)
[2024-11-01 15:41] LABS: B Type Natriuretic Peptide < 10 pg/mL (<100)
[2024-11-01 15:43] LABS: Albumin Level 4.8 g/dL (3.5-5.0); Anion Gap 14 (12-20); Aspartate Amino Transferase 60 U/L (5-37); Blood Urea Nitrogen 20 mg/dL (9-16); Calcium 9.9 mg/dL (8.4-10.2); Carbon Dioxide 24 mmol/L (22-29); Chloride 106 mmol/L (96-108); Creatinine Clr Calc Pharmacy 105.5; Estimated Glomerular Filt Rate > 60; Glucose Random 87 mg/dL (60-115); Potassium 3.9 mmol/L (3.3-5.1); Sodium 140 mmol/L (135-145); Total Protein 7.7 g/dL (6.5-8.0); Troponin-I High Sensitivity < 2.7 ng/L (<3.5-35.0)
[2024-11-01 15:45] LABS: D Dimer High Sensitivity < 150 NG/ML
[2024-11-01 15:57] LABS: Alanine Aminotransferase 114 U/L (0-40); Alkaline Phosphatase 74 U/L (39-117)
[2024-11-01 16:02] LABS: Influenza A PCR NEGATIVE (Negative); Influenza B PCR NEGATIVE (Negative); Resp Syncy Virus RNA Qual PCR NEGATIVE (Negative); SARS COV2 PCR INHOUSE NEGATIVE (Negative)
[2024-11-01 20:18] VITALS: BP 161/74; PULSE 69; RESP 16; TEMP 36.9; O2SAT 99
[2024-11-01] MEDS: Ibuprofen 600 MG TABLET PO (21:58)
[2024-11-01 22:01] VITALS: BP 161/74; PULSE 69; RESP 16; TEMP 36.9; O2SAT 99
== END 2024-11-01 22:02 | disposition home or self-care (01) ==
PROVIDERS: Physician Assistant; Emergency Provider Emergency Medicine; PCP Internal Medicine
DX: R07.1 Chest pain on breathing (principal); R79.89 Other specified abnormal findings of blood chemistry; R06.02 Shortness of breath; Z79.899 Other long term (current) drug therapy; Z03.818 Encounter for observation for suspected exposure to other biological agents ruled out
CPT/HCPCS: 0241U; 36415; 71045; 80053; 83880; 84484; 85025; 85379; 85610; 85730; 93005; 99283

== ENCOUNTER → 2024-11-01 14:17 | Outpatient (BNV) | payer OTHER, SELFPAY | PROVIDERS: Emergency Provider Emergency Medicine; PCP Internal Medicine; Visit Provider Internal Medicine Cardiovascular Disease | DX: R07.9 Chest pain, unspecified (principal) | CPT/HCPCS: 93010 ==

== ENCOUNTER → 2024-11-01 14:58 | Outpatient (BNV) | payer OTHER, SELFPAY | PROVIDERS: PCP Internal Medicine; Visit Provider Radiology Diagnostic Radiology | DX: R07.9 Chest pain, unspecified (principal) | CPT/HCPCS: 71045 ==

== ENCOUNTER 2024-12-01 10:50 | Outpatient (AMB) | payer OTHER, SELFPAY ==
--- NOTE | 2024-12-01 11:04 | A.OFFVIS_ITS ---
Intake Visit Reasons: Semen analysis/Labs(Labs?) Intake Note: Patient is present for SEMEN ANALYSIS/LABS Urology Medication:TADALAFIL Antibiotic Allergy:NONE Blood Thinner:NONE Unindentured Apprentice Required: No Allergies latex Adverse Reaction (Uncoded 12/22/24 10:54) rash HPI Comments Details: Rimma is a pleasant male. He is a patient of Dr. Monte. He is seen for the following urologic conditions - low libido - infertility Three-month follow-up lab work and semen analysis Male infertility Trying for over 12 months Prior workup in [place] 5 years ago never underwent treatment - 2019 thyroxine very low count States semen analysis noted decreased sperm mobility Female evaluation normal Recommendation 09/12/2024 start enclomiphene Restart in clomiphene Three-month follow-up lab work and sperm analysis No sperm seen on in office evaluation today Low libido T labs - 06/16 380, 12/18 250 FT 58 LH 2.7 PFSH Medical History Loss of libido Fluctuation of weight Gynecomastia, male CRPS (complex regional pain syndrome), upper limb History of COVID-19 Low sperm motility Depression Environmental and seasonal allergies Surgical History History of appendectomy Social History Household Members Other:: Housing: House Alcohol intake: never Patient Tobacco Use Status: Never used Tobacco e-Cigarette/Vaping Use: Never Used Second Hand Smoke Exposure: No service: No Current occupational status: employed Cognitive needs: No Hearing needs: No Vision needs: Yes Review of Systems Const Denies chills and Denies fever(s) Card Reports no additional complaints and Denies syncope Resp Denies cough GI Denies abdominal pain and Denies heartburn Reports as per HPI and Denies change in libido Neuro Denies syncope Psych Denies change in libido Endo Denies change in libido Physical Exam Const General: cooperative, healthy appearing, comfortable and no acute distress Orientation/consciousness: patient oriented x3 HEENT Face and sinus: Yes normal facial exam Mouth: moist mucous membranes Neck Neck: Yes normal visual inspection, Yes full ROM and Yes trachea midline Chest Chest palpation & inspection: normal inspection of the chest Resp Effort & Inspection: normal respiratory effort, able to speak in complete sentences and no respiratory distress GI Inspection: Yes normal to inspection Back/Spine/Pelvis Cervical Spine: normal cervical lordosis Thoracic/Lumbar Spine: thoracic and lumbar spine normal to inspection Skin General skin exam: no rashes or lesions noted Neuro General: patient oriented x3, gait normal, tone normal and moves all extremities Extrem General: Yes normal to inspection and Yes capillary refill normal Assessment & Plan Assessment & Plan (1) Low sperm motility: Code(s): R86.8 - Other abnormal findings in specimens from male genital organs Category: Medical (2) Loss of libido: Code(s): R68.82 - Decreased libido Category: Medical Plan Repeat lab work Three-month follow-up Orders: Orders Testosterone, Free/Total 12/01/24 R68.82 - Decreased libido, R86.8 - Other abnormal findings in specimens from male genital organs Lutenizing Hormone 12/01/24 E11.69 - Type 2 diabetes mellitus with other specified complication, N52.1 - Erectile dysfunction due to diseases classified elsewhere, R86.8 - Other abnormal findings in specimens from male genital organs Follicle Stimulating Hormone 12/01/24 R68.82 - Decreased libido, R86.8 - Other abnormal findings in specimens from male genital organs Estradiol Ultra Sensitive 12/01/24 E29.1 - Testicular hypofunction, R86.8 - Other abnormal findings in specimens from male genital organs Patient Instructions: This note is constructed using voice recognition software. While every effort has been made to ensure accuracy buckle strap drum operator errors may have been included. Imaging studies, laboratory and physical exam results were discussed and reviewed in detail. No major barriers to patient understanding were identified. An opportunity to ask questions regarding the treatment plan was provided. All questions were answered. The patient expressed understanding and agreement with the above treatment plan. The patient is aware they should contact our office by phone for worsening of their current condition or the appearance of new urologic symptoms. Compliance is encouraged with any medications and followup testing that is ordered. It is a privilege to participate in the urologic care of your patient. If you have any questions or concerns regarding treatment for the above conditions, or other urologic issues, please do not hesitate to contact me. The office telephone contact is [phone]. Sincerely, Dr Yohan Simms MD, [facility] - Urology Compassionate Specialist Care for the Genitourinary System Coding Level of Care Code Est Pt Level 3 (28587) Diagnoses Low sperm motility R86.8 Loss of libido R68.82
== END 2024-12-01 11:23 | disposition home or self-care (01) ==
PROVIDERS: PCP Internal Medicine; Visit Provider Urology
DX: R86.8 Other abnormal findings in specimens from male genital organs (principal); R68.82 Decreased libido
CPT/HCPCS: 99499

== ENCOUNTER 2024-12-01 11:26 | Outpatient (REF) | payer OTHER, SELFPAY ==
[2024-12-02 18:13] LABS: Follicle Stimulating Hormone 8.2 mIU/mL (1.4-12.8); Lutenizing Hormone 2.7 mIU/mL (1.5-9.3)
[2024-12-05 17:34] LABS: Testosterone, Total 249 ng/dL (250-1100)
[2024-12-09 00:14] LABS: Estradiol Ultra Sensitive 19 pg/mL (< OR = 29)
== END 2024-12-01 11:27 | disposition home or self-care (01) ==
LOC: HO.10HDL 11:26
PROVIDERS: Visit Provider Urology
DX: E11.69 Type 2 diabetes mellitus with other specified complication (principal); N52.1 Erectile dysfunction due to diseases classified elsewhere; E29.1 Testicular hypofunction; R68.82 Decreased libido; R86.8 Other abnormal findings in specimens from male genital organs
CPT/HCPCS: 36415; 82670; 83001; 83002; 84402; 84403

== ENCOUNTER 2024-12-22 10:48 | Outpatient (AMB) | payer OTHER, SELFPAY ==
--- NOTE | 2024-12-22 10:54 | MHC.OFFVIS ---
Intake Visit Reasons: Semen Analysis/Labs(set) Intake Note: Patient is present for SEMEN ANALYSIS/LABS Urology Medication:NONE Antibiotic Allergy:NONE Blood Thinner:NONE Senior Principal Software Engineer Required: No Allergies latex Adverse Reaction (Uncoded 12/22/24 10:54) rash HPI Comments Details: Rimma is a pleasant male. He is a patient of Dr. Monte. He is seen for the following urologic conditions - low libido - infertility Three-month follow-up lab work and semen analysis Male infertility Trying for over 12 months Prior workup in [place] 5 years ago never underwent treatment - 2019 thyroxine very low count States semen analysis noted decreased sperm mobility Female evaluation normal Recommendation 09/12/2024 start enclomiphene Restart in clomiphene Three-month follow-up lab work and sperm analysis No sperm seen on in office evaluation today Low libido T labs - 06/16 380, 12/18 250 FT 58 LH 2.7 PFSH Medical History Loss of libido Fluctuation of weight Gynecomastia, male CRPS (complex regional pain syndrome), upper limb History of COVID-19 Low sperm motility Depression Environmental and seasonal allergies Surgical History History of appendectomy Social History Household Members Other:: Housing: House Alcohol intake: never Patient Tobacco Use Status: Never used Tobacco e-Cigarette/Vaping Use: Never Used Second Hand Smoke Exposure: No service: No Current occupational status: employed Cognitive needs: No Hearing needs: No Vision needs: Yes Review of Systems Const Denies chills and Denies fever(s) Card Reports no additional complaints and Denies syncope Resp Denies cough GI Denies abdominal pain and Denies heartburn Reports as per HPI and Denies change in libido Neuro Denies syncope Psych Denies change in libido Endo Denies change in libido Physical Exam Const General: cooperative, healthy appearing, comfortable and no acute distress Orientation/consciousness: patient oriented x3 HEENT Face and sinus: Yes normal facial exam Mouth: moist mucous membranes Neck Neck: Yes normal visual inspection, Yes full ROM and Yes trachea midline Chest Chest palpation & inspection: normal inspection of the chest Resp Effort & Inspection: normal respiratory effort, able to speak in complete sentences and no respiratory distress GI Inspection: Yes normal to inspection Back/Spine/Pelvis Cervical Spine: normal cervical lordosis Thoracic/Lumbar Spine: thoracic and lumbar spine normal to inspection Skin General skin exam: no rashes or lesions noted Neuro General: patient oriented x3, gait normal, tone normal and moves all extremities Extrem General: Yes normal to inspection and Yes capillary refill normal Assessment & Plan Assessment & Plan (1) Low sperm motility: Code(s): R86.8 - Other abnormal findings in specimens from male genital organs Category: Medical (2) Loss of libido: Code(s): R68.82 - Decreased libido Category: Medical Plan Repeat lab work Orders: Orders Testosterone, Free/Total 3 Months R68.82 - Decreased libido Lutenizing Hormone 3 Months R68.82 - Decreased libido Follicle Stimulating Hormone 3 Months R68.82 - Decreased libido Estradiol Ultra Sensitive 3 Months E29.1 - Testicular hypofunction, R68.82 - Decreased libido Patient Instructions: This note is constructed using voice recognition software. While every effort has been made to ensure accuracy applications engineering manager errors may have been included. Imaging studies, laboratory and physical exam results were discussed and reviewed in detail. No major barriers to patient understanding were identified. An opportunity to ask questions regarding the treatment plan was provided. All questions were answered. The patient expressed understanding and agreement with the above treatment plan. The patient is aware they should contact our office by phone for worsening of their current condition or the appearance of new urologic symptoms. Compliance is encouraged with any medications and followup testing that is ordered. It is a privilege to participate in the urologic care of your patient. If you have any questions or concerns regarding treatment for the above conditions, or other urologic issues, please do not hesitate to contact me. The office telephone contact is [phone]. Sincerely, Dr Yohan Simms MD, [facility] - Urology Compassionate Specialist Care for the Genitourinary System Coding Level of Care Code Est Pt Level 3 (61921) Diagnoses Low sperm motility R86.8 Loss of libido R68.82
== END 2024-12-22 12:04 | disposition home or self-care (01) ==
PROVIDERS: PCP Internal Medicine; Visit Provider Urology
DX: R86.8 Other abnormal findings in specimens from male genital organs (principal); R68.82 Decreased libido
CPT/HCPCS: 99213

== ENCOUNTER → 2024-12-22 10:48 | Outpatient (BNVA) | payer OTHER, SELFPAY | PROVIDERS: PCP Internal Medicine; Visit Provider Urology ==

== ENCOUNTER 2025-11-12 19:00 | Emergency (ER) | payer OTHER, SELFPAY ==
--- NOTE | ~2025-11-12 | CT_ITS ---
CLINICAL HISTORY: epigastric pain, luq pain, elevated LFT CT abdomen and pelvis with contrast Comparison: None provided Findings: Scattered bilateral 3 mm lung base nodules. Nonemergent chest CT may be of value. No acute bony abnormalities. Hepatomegaly with fatty infiltration of the liver. No focal abnormalities in the liver or spleen. Pancreas and adrenal glands unremarkable. Gallbladder is within normal limits. No significant focal renal abnormalities. No renal stones or hydronephrosis. Abdominal aorta is normal in caliber. No free fluid or adenopathy in the pelvis. No diverticulitis. Appendectomy. Impression: Bilateral 3 mm lung base nodules Consider nonemergent chest CT Hepatomegaly with fatty infiltration of the liver No acute process This document has been electronically signed by: Joni Marcial MD on 11/13/2025 00:47:39
--- NOTE | 2025-11-12 19:14 | ED.ABDPAIN ---
HPI - Abdominal Pain General Chief Complaint: Abdominal Pain Stated Complaint: stomach pain Time Seen by Provider: 11/12/25 22:05 History of Present Illness HPI narrative: patient is 30-year-old male presents today with having abdominal pain. The pain is over the left upper quadrant area. Radiate across the entire upper abdomen. It started last night. Patient had some cream potato last night. Then the pain started about 03:00. Denies any chest pain has no shortness of breath there is no diaphoresis. No history diabetes, hypertension, high cholesterol, smoking, mi. patient is from home. The pain is not associated with any nausea vomiting. Took some Tums but no relief. Came to the ED for help. Status post appendectomy in the past. Related Data Previous Rx's ?Medication ?Instructions ?Recorded pantoprazole 40 mg tablet,delayed 40 mg PO DAILY #14 tabs 11/13/25 release (Protonix) Allergies Allergy/AdvReac Type Severity Reaction Status Date / Time latex AdvReac rash Uncoded 11/12/25 19:18 Review of Systems Review of Systems Positive abdominal pain PMFSH Past Medical History Attestation statement: The following information was validated with the patient. Medical History Loss of libido Fluctuation of weight Gynecomastia, male CRPS (complex regional pain syndrome), upper limb History of COVID-19 Low sperm motility Depression Environmental and seasonal allergies Surgical History History of appendectomy Social History Social History Household Members Other:: Housing: House Alcohol intake: never Patient Tobacco Use Status: Never used Tobacco e-Cigarette/Vaping Use: Never Used Second Hand Smoke Exposure: No Advance Directives: No Advance Directives Information Provided: No Do you have a plan to hurt others: No Plan service: No Current occupational status: employed Cognitive needs: No Hearing needs: No Vision needs: Yes Physical Exam ED Exam Exam: Appearance: Alert. Oriented X3. No acute distress. Eyes: Pupils equal, round and reactive to light. ENT: Pharynx normal. Neck: Normal inspection. Neck supple. No lymph nodes noted. No crepitus CVS: Normal heart rate and rhythm. Pulses normal. Normal S1 and S2 Respiratory: No respiratory distress. Breath sounds normal. No Wheezing. No rales Abdomen: Soft and nontender. No rigidity. No distention. good BS x4 Skin: Skin warm and dry. Normal skin color. Normal skin turgor. Extremities: No lower extremity edema. Neurovascular intact to all extremities. No Lacerations. No Rash Neuro: Oriented X 3. No motor deficit. No sensory deficit. Moving all extermities. No slurred speech Vital Signs: Vital Signs - 24 hr 11/12/25 19:15 11/12/25 21:24 11/13/25 00:48 Temperature 97.7 F 98.1 F Pulse Rate 87 72 64 Respiratory Rate 16 18 16 Blood Pressure 149/82 H 142/88 H 130/75 Pulse Oximetry 94 96 94 Oxygen Delivery Method Room Air Room Air Room Air BMI result Body Mass Index 40.0 Course Course Course Narrative: Daina Romonahomi [employer]NU[employer]IVING [employer]ICER 11/12 1914 This is a rapid medical exam. Deferred additional HPI, ROS, PE to primary provider. 30 yo male with no PMH of here with complaints of left sided upper abdominal pain described as burning since 3am Will obtain labs, UA VSS Medical Decision Making Medical Decision Making [facility] Narrative: patient presented today with having abdominal pain worse over the left upper quadrant area. Improves with GI cocktail. Patient pain goes to the epigastric area as well as a right upper quadrant area. Woke him up from sleep. The pain is reported to be sharp and burning. CT scan of the abdomen pelvis showed a normal gallbladder. There is no evidence for cholecystitis. Can not rule out the possibility of colic. Question gastritis. Patient does have elevated LFTs. Will require follow-up with GI and with surgery. Case consulted by surgery feel comfortable with discharge. In no distress. Will start PPI. In stable condition. Differential Diagnosis Differential Diagnoses: The differential diagnosis associated with the presentation includes Gastritis, cholecystitis, biliary colic Admission/Observation Consideration of admission/observation: Escalation of care including admission/observation considered Lab Data [facility] Lab Attestation statement: I reviewed the patient's lab results. 11/12/25 19:43 11/12/25 19:43 Labs: Lab Results 11/12/25 11/12/25 Range/Units 19:43 22:16 WBC 6.9 (4.8-10.8) X10*3/uL RBC 5.33 (4.60-5.80) X10*6/uL Hgb 16.2 (14.0-18.0) g/dl Hct 46.2 (42.0-52.0) % MCV 86.7 (80.0-98.0) fL MCH 30.4 (27.0-33.0) pg MCHC 35.1 (31.0-36.0) g/dl RDW 12.2 (11.0-16.0) % Plt Count 283 (160-400) X10*3/uL MPV 9.3 L (9.4-12.4) fL Immature Gran % (Auto) 0.1 (0.0-0.4) % Neut % (Auto) 55.8 (45-73) % Lymph % (Auto) 34.3 (20-40) % [place] % (Auto) 6.1 (2-11) % Eos % (Auto) 2.5 (0-4) % Baso % (Auto) 1.2 (0-2) % Lymph # (Auto) 2.4 (1.2-4.9) X10*3/uL [place] # (Auto) 0.4 (0.1-1.2) X10*3/uL Eos # (Auto) 0.2 (0.0-0.4) X10*3/uL Baso # (Auto) 0.1 (0.0-0.2) X10*3/uL Abs Immat Gran (auto) 0.01 (0.00-0.03) X10*3/uL Absolute Neuts (auto) 3.9 (2.0-8.3) x10*3/uL Absolute Nucleated RBC 0.000 (0.0-0.012) X10*3/uL Nucleated RBC % (auto) 0.0 (0.0-0.2) /100WBC Sodium 141 (135-145) mmol/L Potassium 4.9 D (3.3-5.1) mmol/L Chloride 104 (96-108) mmol/L Carbon Dioxide 23 (22-29) mmol/L Anion Gap 19 (12-20) BUN 13 (9-16) mg/dL Creatinine 1.08 (0.5-1.4) mg/dL Estim Creat Clear Calc 115.6 Estimated GFR > 60 Random Glucose 96 (60-115) mg/dL Calcium 10.3 H (8.4-10.2) mg/dL Total Bilirubin 1.4 H (0.0-1.0) mg/dL Direct Bilirubin 0.3 (0.0-0.5) mg/dL AST 142 H (5-37) U/L ALT 239 H (0-40) U/L Alkaline Phosphatase 81 (39-117) U/L Total Protein 8.5 H (6.5-8.0) g/dL Albumin 5.2 H (3.5-5.0) g/dL Lipase 21 (8-78) U/L Urine Color Yellow Urine Appearance Clear Urine pH 5.0 (5.0-9.0) Ur Specific [place] 1.025 (1.005-1.025) Urine Protein Negative (Neg-Trace) mg/dL Urine Glucose (UA) Negative (Negative) mg/dL Urine Ketones Negative (Negative) mg/dL Urine Blood Negative (Negative) Urine Nitrite Negative (Negative) Ur Leukocyte Esterase Negative (Negative) Radiology Impression Discussion of test interpretation with radiology: I have reviewed the radiologist's reading. Medications Administered Discontinued Medications Generic Name Dose Route Start Last Admin Trade Name Freq PRN Reason Stop Dose Admin Al Hydroxide/Mg Hydroxide 30 ml 11/13/25 00:54 11/13/25 01:07 Magnesium Hydrox/Alum Hydrox 30 Ml Oral.Susp PO 11/13/25 00:55 30 ml ONCE ONE Administration Belladonna Alkaloids/Phenobarbital 10 ml 11/13/25 00:54 11/13/25 01:07 Phenobarb/Hyoscy/Atropine/Scop 10 Ml Elixir PO 11/13/25 00:55 10 ml ONCE ONE Administration Iohexol 100 ml 11/13/25 00:07 11/13/25 00:08 Iohexol 350 Mg/Ml 100 Ml Infus..Btl IV 11/13/25 00:08 85 ml ONCE ONE Administration Lidocaine HCl 15 ml 11/13/25 00:54 11/13/25 01:07 Lidocaine Hcl Viscous 2 % 15 Ml Solution MUCOUS MEM 11/13/25 00:55 15 ml ONCE ONE Administration Discharge Plan Discharge Clinical Impression: Gastritis Patient Disposition: Home, Self-Care Instructions: Gastritis (DC), Biliary Colic (ED), GERD (Gastroesophageal Reflux Disease) (ED) Prescriptions: New pantoprazole [Protonix] 40 mg tablet,delayed release (DR/EC) 40 mg PO DAILY Qty: 14 0RF Referrals: Gissell Monte MD [Primary Care Provider, Internal Medicine] - 11/15/25 Frederic Noonan MD [Physician, General Surgery] - 11/15/25 Antoinette Lund MD [Physician, Gastroenterology] - 11/15/25 Print Language: Botswanan
[2025-11-12 19:15] VITALS: BP 149/82; PULSE 87; RESP 16; TEMP 36.5; O2SAT 94; BMI 40.0
[2025-11-12 19:47] LABS: Hematocrit 46.2 % (42.0-52.0); Hemoglobin 16.2 g/dl (14.0-18.0); Imm Gran Abs Auto 0.01 X10*3/uL (0.00-0.03); Imm Gran Pct Auto 0.1 % (0.0-0.4); Lymphocytes Absolute Auto 2.4 X10*3/uL (1.2-4.9); MANUAL DIFF FLAG NO; Mean Corpuscular HGB Conc 35.1 g/dl (31.0-36.0); Mean Corpuscular Hemoglobin 30.4 pg (27.0-33.0); Mean Corpuscular Volume 86.7 fL (80.0-98.0); NRBC Abs Auto 0.000 X10*3/uL (0.0-0.012); NRBC Pct Auto 0.0 /100WBC (0.0-0.2); Platelet Count 283 X10*3/uL (160-400); Red Blood Count 5.33 X10*6/uL (4.60-5.80); White Blood Count 6.9 X10*3/uL (4.8-10.8)
[2025-11-12 20:08] LABS: Alanine Aminotransferase 239 U/L (0-40); Albumin Level 5.2 g/dL (3.5-5.0); Alkaline Phosphatase 81 U/L (39-117); Anion Gap 19 (12-20); Aspartate Amino Transferase 142 U/L (5-37); Blood Urea Nitrogen 13 mg/dL (9-16); Calcium 10.3 mg/dL (8.4-10.2); Carbon Dioxide 23 mmol/L (22-29); Chloride 104 mmol/L (96-108); Creatinine Clr Calc Pharmacy 115.6; Estimated Glomerular Filt Rate > 60; Lipase 21 U/L (8-78); Potassium 4.9 mmol/L (3.3-5.1); Sodium 141 mmol/L (135-145); Total Protein 8.5 g/dL (6.5-8.0)
--- OUTSIDE RECORDS SUMMARY | 2025-11-12 21:16 | XMS_ITS | Patient Health Record ---
Author Organization [facility] Billing Address [address] [place] [address] [place] [address] [phone] Care Team Providers Care Rn Licensed Practical Name Role Phone Rudy Murillo MD Primary Care Provider Unavailable LILIANE OZUNA Unavailable [phone] Allergies Allergen (clinical drug ingredient) Drug/Non Drug Allergy documented on EMR Reaction Allergy Type Onset Date Status PINEAPPLE (uncoded) Unknown Allergy Active Shellfish (FN) SHRIMP (uncoded) Unknown Allergy Active Reason For Referral No Information Medications Medication SIG (Take, Route, Frequency, Duration) Notes Start Date End Date Status Benadryl Allergy 25 MG 1 cap(s) orally 3 times a day prn Active Albuterol Sulfate HFA 108 (90 Base) MCG/ACT 2 puff(s) inhaled every 6 hours prn 01/06/2020 Active Fexofenadine HCl 180 MG 2 orally Q am 01/06/2020 Active EPINEPHrine 0.3 MG/0.3ML 0.3 mg unit dos e Intramuscular p.r.n. anaphylaxis/angioedema; Duration: 30 day(s) 02/06/2019 Active Cetirizine HCl 10 MG 2 orally Q hs 01/06/2020 Active Immunizations Vaccine Route Administration Date Status Comme nts Influenza Unknown 10/06/2019 Administered Social History Tobacco Use: Social History Observation Description Date Details (start date - stop date) Never Smoker NA - NA Smoking: Question Answer Notes Are you a: never smoker Not exposed to s econd-hand cigarette smoke Problems Problem Type SNOMED Code ICD Code Onset Dates Problem Status W/U Status Risk Notes Problem Idiopathic urticaria (82606004) Idiopathic urticaria (L50.1) Active confirmed Today's visit is a Tele-visit. He was previously here 02/15/20 (Tele-visit). It began . Sxs stopped over summer but returned December, initially on arm then next a.m. became generalized, incl. forehead. There's been no swelling, no oropharyngeal or GI sxs. Likely idiopathic/chol inergic - perhaps heat indoors. He's been taking Mela 180 mg 2 Q am and Zyrtec 10 mg - 2 Q hs and doing very good but notices if he misses a day it flares. Plan Of Treatment Pending Test Test Name Order Date alicia 01/06/2020 alicia 01/18/2020 INGA IFA SCREEN W/REFL TO TITER AND EMILIANA DON, IFA 02/06/2019 GREEN MONZON (F315) IGE 02/06/2019 PEANUT (F13) IGE 02/06/2019 CRAB (F23) IGE 02/06/2019 SHRIMP (F24) IGE 02/06/2019 LOBSTER (F80) IGE 02/06/2019 PINEAPPLE (F210) IGE 02/06/2019 RED KIDNEY MONZON (F287)IGE 02/06/2019 ALLERGEN SPECIFIC IGE BLACK MONZON 019 IMMUNOGLOBULIN E 02/06/2019 LATEX (K82) IGE 02/06/2019 Insurance Providers Payer Name Payer Address Payer Phone Subscriber Number Group Number Insured Name Patient Relationship to Insured Coverage Start Date Coverage End Date [facility] [employer] [employer] [address] [address] [place] [phone] [id number] Rimma Sharma Self - patient is the insured [employer] [address] [address] [place] [address] [id number] Rimma Sharma Self - patient is the insured Medical (General) History Medical History History ICD Code Angioneurotic edema, initial encounter T 78.3XXA Latex allergy status Z91.040 Urticaria, unspecified L50.9 Surgical History Surgery Date(Month/Year)
--- OUTSIDE RECORDS SUMMARY | 2025-11-12 21:16 | XMS_ITS ---
Author Name [facility] Organization Unknown Encounters Encounter Type Encounter Reason Primary Diagnosis Location Date Emergency NECK INJURY NECK INJURY [facility] 06/08/2025 Care Team Organization Name Specialty Phone Email Start Date End [facility] Gissell Alva[facility]ga [facility] Primary Care 06/08/2025 07/29/2025 [facility] No provided Primary Care 06/08/2025
[2025-11-12 21:24] VITALS: BP 142/88; PULSE 72; RESP 18; O2SAT 96
[2025-11-12 22:30] LABS: Appearance Urine Clear; Glucose Urine UA Negative (Negative); PH 5.0 (5.0-9.0); Specific Gravity - Urine 1.025 (1.005-1.025)
[2025-11-13] MEDS: iohexoL 350 MG/ML 100 ML INFUS..BTL IV (00:08)
[2025-11-13 00:48] VITALS: BP 130/75; PULSE 64; RESP 16; TEMP 36.7; O2SAT 94
[2025-11-13] MEDS: Magnesium Hydrox/Alum Hydrox 30 ML ORAL.SUSP PO (01:07)
[2025-11-13] MEDS: Lidocaine HCl Viscous 2 % 15 ML SOLUTION MUCOUS MEM (01:07)
[2025-11-13] MEDS: PHENobarb/Hyoscy/Atropine/Scop 10 ML ELIXIR PO (01:07)
[2025-11-13 01:55] VITALS: BP 130/75; PULSE 64; RESP 16; TEMP 36.7; O2SAT 94
== END 2025-11-13 01:55 | disposition home or self-care (01) ==
PROVIDERS: Nurse Practitioner Family; Emergency Provider Emergency Medicine Emergency Medical Services; PCP Internal Medicine
DX: K29.70 Gastritis, unspecified, without bleeding (principal); R10.12 Left upper quadrant pain
CPT/HCPCS: 36415; 74177; 80048; 80076; 81003; 83690; 85025; 99283; 99284; 99285; Q9967

== ENCOUNTER → 2025-11-13 | Outpatient (BNV) | payer OTHER, SELFPAY | PROVIDERS: Emergency Provider Emergency Medicine Emergency Medical Services; PCP Internal Medicine; Visit Provider Radiology Diagnostic Radiology | DX: K76.0 Fatty (change of) liver, not elsewhere classified (principal); R91.8 Other nonspecific abnormal finding of lung field | CPT/HCPCS: 74177 ==